=== PATIENT | female | born 1965 | race Caucasian/White ===

== ENCOUNTER 2016-09-11 07:39 | Outpatient (CLI) | payer OTHER ==
[2016-09-11 08:23] LABS: eGFR (African) > 60; eGFR (Non-African) > 60
== END 2016-09-11 07:40 ==
LOC: LAB 07:39
PROVIDERS: ATTEND Family Medicine
DX: Z00.00 Encounter for general adult medical examination without abnormal findings (principal)
CPT/HCPCS: 36415; 80053; 80061

== ENCOUNTER 2017-09-08 07:50 | Outpatient (CLI) | payer OTHER ==
[2017-09-08 08:51] LABS: eGFR (African) > 60; eGFR (Non-African) > 60
== END 2017-09-08 07:52 ==
LOC: LAB 07:50
PROVIDERS: ATTEND Family Medicine
DX: E78.2 Mixed hyperlipidemia (principal)
CPT/HCPCS: 36415; 80053; 80061